=== PATIENT | male | born 1945 | race Caucasian/White ===

== ENCOUNTER 2023-01-30 02:56 | Day surgery (SDC) | payer MEDICARE, OTHER, SELFPAY ==
[2023-01-17 08:20] VITALS: BMI 29.2
[2023-01-30 11:32] VITALS: BP 152/89; PULSE 72; RESP 18; TEMP 36.1; O2SAT 99
[2023-01-30] MEDS: LACTATED RINGERS 1,000 ML 150 ML IV CONT (11:36)
--- NOTE | 2023-01-30 12:00 | PM.HPGS ---
History of Present Illness History of Present Illness Consent: Risks, benefits, and alternatives have been discussed and questions answered. Patient agrees to proceed with procedure. Chief complaint: neoplasm screening Narrative: Reece Messer is a 77 year old male Presents for screening colonoscopy. Patient's current weight appetite and bowel movements are normal. Patient denies abdominal pain. He has had no bleeding. Family history noncontributory. Patient presents today for neoplasia screening. Review of Systems Review of Systems: Review of systems noncontributory. [facility] [place] Social History Social History Smoking status: Unknown if ever smoked Substance use type: does not use Living arrangements: with family Meds Home Medications and Allergies Home Medications Medication Instructions Recorded Confirmed Type atorvastatin 10 mg tablet 10 mg PO DAILY 01/30/23 01/30/23 History lisinopril 5 mg tablet 5 mg PO DAILY 01/30/23 01/30/23 History meloxicam 15 mg tablet 15 mg PO DAILY 01/30/23 01/30/23 History Allergies Allergy/AdvReac Type Severity Reaction Status Date / Time No Known Allergies Allergy Verified 01/30/23 11:31 Vital Signs Vital Signs - 24 hr 01/30/23 11:32 Temperature 97.0 F L Pulse Rate 72 Respiratory Rate 18 Blood Pressure 152/89 H Pulse Oximetry 99 Oxygen Delivery Room Air Exam Narrative: Physical exam reveals patient to be alert. Vital signs stable. HEENT exam is unremarkable. Patient is anicteric. Lungs are clear to auscultation and percussion. Heart is without murmur or extra sounds. Abdomen bowel sounds present soft nontender with no organomegaly. Digital external rectal exam is normal. Assessment and Plan Assessment and plan (1) Encounter for screening colonoscopy: Code(s): Z12.11 - Encounter for screening for malignant neoplasm of colon Status: Acute Assessment and Plan: Patient presents today for screening colonoscopy. He appears to be at average risk for colon polyps. Further recommendations may be given after endoscopy.
--- NOTE | 2023-01-30 13:35 | WPDANESEPPF ---
Anes - Initial Pre Proc Eval Procedure: Operation Date: 01/30/23 12:30 Proposed Procedures p Screening Colonoscopy - Lopez Valera MD Date/Time: 01/30/23 13:35 Surgeon: Lopez Valera MD Pre Op Diagnosis: neoplasm screening Patient Data Age: 77 Gender: M Height: 1.83 m Weight: 97.2 kg Last Vital Signs Temp 97.0 F L 01/30/23 11:32 Pulse 72 01/30/23 11:32 Resp 18 01/30/23 11:32 BP 152/89 H 01/30/23 11:32 Pulse Ox 99 01/30/23 11:32 O2 Del Method Room Air 01/30/23 11:32 Allergies Allergy/AdvReac Type Severity Reaction Status Date / Time No Known Allergies Allergy Verified 01/30/23 11:31 Home Medications Medication Instructions Recorded Confirmed Type atorvastatin 10 mg tablet 10 mg PO DAILY 01/30/23 01/30/23 History lisinopril 5 mg tablet 5 mg PO DAILY 01/30/23 01/30/23 History meloxicam 15 mg tablet 15 mg PO DAILY 01/30/23 01/30/23 History Patient hx anesthesia problems: none Family hx anesthesia problems: none Results Review: All pre-operative results and documents have been reviewed as part of the pre-operative evaluation. [facility] Social History Social History Smoking status: Unknown if ever smoked Substance use type: does not use Living arrangements: with family Anes - Eval Final PreProcedure Day of Procedure 01/30/23 13:35 Patient weight: obese Heart: regular rate and rhythm Lungs: clear to auscultation Airway: Mallampati scale class II Neurological: alert and oriented Last oral intake: >/= 8 hours ASA classification: III Emergent: no Anesthetic plan: proceed Anesthesia type and monitoring: general GIVS and standard monitoring Results Review: All pre-operative results and documents have been reviewed as part of the pre-operative evaluation. Informed Consent: The patient's anesthetic plan and its attendant risks and benefits were discussed with the patient/family/POA. Questions were solicited and answers provided to the satisfaction of the patient/family/POA.
[2023-01-30 13:37] VITALS: BP 124/71; PULSE 70; RESP 22; O2SAT 98
[2023-01-30 13:47] VITALS: BP 136/86; PULSE 68; RESP 20; O2SAT 99
[2023-01-30 13:57] VITALS: BP 146/92; PULSE 70; RESP 20; O2SAT 100
== END 2023-01-30 14:08 | disposition home or self-care (01) ==
PROVIDERS: PCP Internal Medicine; Visit Provider Internal Medicine Gastroenterology
PROC: 0DJD8ZZ Inspection of Lower Intestinal Tract, Via Natural or Artificial Opening Endoscopic (ICD-10-PCS; CPT 45378; principal; 2023-01-30 12:30)
DX: Z12.11 Encounter for screening for malignant neoplasm of colon (principal); K64.8 Other hemorrhoids; K57.30 Diverticulosis of large intestine without perforation or abscess without bleeding; E66.9 Obesity, unspecified; Z68.29 Body mass index [BMI] 29.0-29.9, adult
CPT/HCPCS: G0121; J2704; J7120

== ENCOUNTER 2025-02-02 14:19 | Outpatient (CLI) | payer MEDICARE, OTHER, SELFPAY ==
--- NOTE | ~2025-02-02 | MR_ITS ---
MRI of the lumbar spine Clinical History: Pain Technique: Axial T2-weighted images, and sagittal T1-weighted, T2-weighted, and T2 fat-sat images wer e acquired. Findings: No fracture seen. There is minimal grade 1 anterolisthesis of L4 over L5. There is 3 mm ret rolisthesis of L5 over S1. There are reactive marrow signal changes about the L4-L5 disc space. At L1-L2, there is no disc bulge or herniation. There is moderate to advanced facet arthropathy. No c entral canal stenosis. There is mild to moderate bilateral neural foraminal narrowing. At L2-L3, there is no disc bulge or herniation. There is moderate to advanced facet arthropathy. No c entral canal stenosis. There is moderate left neural foraminal narrowing. There is minimal right neur al foraminal narrowing. At L3-L4, there is advanced degenerative disc narrowing. There is diffuse disc bulge with severe face t arthropathy. There is moderate to severe spinal canal stenosis/thecal sac compression. There is adv anced bilateral neural foraminal narrowing, right worse than left. At L4-L5, there is severe degenerative disc narrowing. There is diffuse disc bulge with superimposed central to right paracentral disc extrusion. There is severe facet arthropathy. There is moderate to severe spinal canal stenosis/thecal sac compression. There is severe bilateral neural foraminal compr omise. At L5-S1, there is advanced degenerative disc narrowing. There is diffuse disc bulge with severe face t arthropathy. No central canal stenosis. There is severe bilateral neural foraminal narrowing. Paravertebral soft tissues are unremarkable. Impression: Severe degenerative spondylitic changes at L4-L5, with large central to right paracentral disc extrus ion. Please see details above. Additional severe degenerative spondylitic changes at L3-L4 and L5-S1. Reviewed, dictated and finalized at location M. Impression: Severe degenerative spondylitic changes at L4-L5, with large central to right p aracentral disc extrusion. Please see details above. Additional severe degenerative spondylitic changes at L3-L4 and L5-S1.
== END 2025-02-02 14:20 | disposition home or self-care (01) ==
LOC: GOSHIMG 14:20
PROVIDERS: PCP Physician Assistant; Visit Provider Physician Assistant
DX: M48.061 Spinal stenosis, lumbar region without neurogenic claudication (principal); M51.16 Intervertebral disc disorders with radiculopathy, lumbar region; M53.3 Sacrococcygeal disorders, not elsewhere classified; M47.896 Other spondylosis, lumbar region
CPT/HCPCS: 72148